=== PATIENT | male | born 1955 | race Caucasian/White ===

== ENCOUNTER 2024-11-18 09:43 | Outpatient (CLI) | payer MEDICARE, SELFPAY ==
[2024-11-18 10:13] LABS: Add Urine Microscopic? YES; Appearance Urine Clear (Clear); Bilirubin Urine Negative (Negative); Blood Urine 2+ (Negative); Color Urine Yellow (Yellow); Glucose Urine UA Negative (Negative); Ketones Urine Negative (Negative); Leukocyte Esterase Ur Trace (Negative); Nitrate Urine Negative (Negative); Protein Urine 1+ (Negative); Specific Grav Ur 1.025 (1.010-1.020); Urobilinogen Urine 0.2 mg/dL (0.2-1.0)
[2024-11-18 10:15] LABS: Basophils Absolute Auto 0.16 K/mm3 (0.00-0.10); Basophils Percent Auto 1.6 % (0.0-1.0); Eosinophils Absolute Auto 0.17 K/mm3 (0.02-0.50); Eosinophils Percent Auto 1.7 % (1.0-6.0); Hemoglobin 15.1 g/dL (12.4-15.3); Immature Granulocyte Absolute 0.04 K/mm3 (0.00-0.00); Immature Granulocyte Percent A 0.4 % (0.0-0.0); Lymphocytes Absolute Auto 2.48 K/mm3 (1.10-4.50); Lymphocytes Percent Auto 24.6 % (18.0-42.0); Mean Corpuscular HGB Conc 33.6 g/dL (32-36); Mean Corpuscular Hemoglobin 32.3 pg (27.0-31.0); Mean Corpuscular Volume 96.2 fL (78.0-102.0); Mean Platelet Volume 8.9 fl (8.7-11.0); Monocytes Absolute Auto 0.69 K/mm3 (0.10-0.90); Monocytes Percent Auto 6.8 % (2.0-11.0); Neutrophils Absolute Auto 6.54 K/mm3 (1.70-7.20); Neutrophils Percent Auto 64.9 % (50.0-70.0); Platelet Count Result 336 K/mm3 (150-420); Red Blood Count 4.68 M/mm3 (4.70-6.10); Red Cell Distribution Width 12.3 % (11.6-14.4); White Blood Count 10.1 K/mm3 (4.8-10.8)
[2024-11-18 10:30] LABS: Bacteria Urine Trace /hpf; Mucus Urine Few /lpf
[2024-11-18 10:56] LABS: Alanine Aminotransferase 25 U/L (16-63); Albumin Level 3.6 g/dL (3.4-5.0); Alkaline Phosphatase 112 U/L (46-116); Anion Gap 8 mmol/L (4-12); Aspartate Amino Transferase 19 U/L (15-37); Bilirubin,Total 0.2 mg/dL (0.00-1.00); Blood Urea Nitrogen 13 mg/dL (7-18); CRP 0.5 mg/dL (0.0-0.9); Calcium 9.1 mg/dL (8.5-10.1); Carbon Dioxide 30 mmol/L (21-32); Chloride 101 mmol/L (98-108); Estimated Glomerular Filt Rate 59; Glucose 109 mg/dL (70-99); Osmolality Calculated 289 mOsm/kg (285-295); Potassium 4.5 mmol/L (3.5-5.1); Sodium 139 mmol/L (136-145); Thyroid Stimulating Hormone 1.25 uIU/mL (0.36-3.74); Total Protein 6.9 g/dL (6.4-8.2); Uric Acid 5.3 mg/dL (3.5-7.2)
[2024-11-18 11:19] LABS: Erythrocyte Sedimentation Rate 16 mm/hr (0-20)
[2024-11-18 15:03] LABS: Prostate Specific Antigen 4.9 ng/mL (< OR = 4.0)
== END 2024-11-18 09:44 | disposition home or self-care (01) ==
PROVIDERS: PCP Internal Medicine; Visit Provider Internal Medicine
DX: Z12.5 Encounter for screening for malignant neoplasm of prostate (principal); N20.0 Calculus of kidney; R30.0 Dysuria; N50.819 Testicular pain, unspecified; R53.83 Other fatigue
CPT/HCPCS: 36415; 80053; 81001; 84153; 84443; 84550; 85025; 85652; 86140; 87086; G0103

== ENCOUNTER 2024-11-22 10:01 | Outpatient (CLI) | payer MEDICARE, SELFPAY ==
--- NOTE | ~2024-11-22 | US_ITS ---
Testicular ultrasound with doppler. Indication: Testicular pain, hematuria. Technique: Real-time sonography the scrotum was performed. Color flow Doppler and Doppler spectral an alysis were performed. Findings: The testes are homogeneous in echotexture bilaterally. There is no evidence of solid intra testicular mass. There is a 4 mm left testicular cyst. The right testis measures 5.3 x 3.4 x 2.5 cm a nd the left 3.8 x 2.4 x 2.6 cm. There is color-flow seen to both testes. Arterial and venous spectral waveforms are seen in both testes. There is no sonographic evidence of torsion. There is a 10 mm lef t epididymal head cyst or spermatocele. Right epididymis unremarkable. Minimal bilateral hydroceles a re present. Impression: No acute abnormality seen. Minimal bilateral hydroceles. 10 mm left epididymal head cyst or spermatocele. 4 mm left testicular cyst. Reviewed, dictated and finalized at [facility]. ETING AND PUBLIC RELATIONS MANAGER Impression: No acute abnormality seen. Minimal bilateral hydroceles. 10 mm left epididymal head cyst or spermatocele. 4 mm left testicular cyst.
--- NOTE | ~2024-11-22 | CT_ITS ---
CT of the Abdomen and Pelvis: Indication: Hematuria Technique: 2.5 mm axial scans were obtained through the abdomen and pelvis prior to and following in travenous administration of 130 cc of Omnipaque 350. Dose reduction technique was used on this scan b y utilizing automated exposure control and iterative reconstruction technique. The dose-length produc t (DLP) was 778.15 mGy-cm. Findings: Scans through the lung bases are unremarkable. The liver, spleen, pancreas, gallbladder, and adrenal glands are within normal limits. There are athe rosclerotic calcifications of the aorta. No lymphadenopathy. No left renal stone or left ureteral stone. No left hydronephrosis. There is a 1.8 x 0.7 cm ovoid sto ne at the right renal pelvis. Additional 3 mm nonobstructing right renal stone probably present. No h ydronephrosis. Remainder of the right ureter unremarkable. No bowel obstruction or bowel wall thickening. There is no evidence to suggest acute appendicitis. Images through the pelvis were performed. There is irregular possible filling defect in the left post erior bladder on delayed images, possibly related to ureteral jet, though an irregular mass or blood clot excluded.. No pelvic mass seen. No ascites. Impression: Right nephrolithiasis, as above, including 1.8 x 0.7 cm right renal pelvis stone. No lloyd hydronephr osis on either side. Irregular possible filling defect in the posterior left urinary bladder on delayed images. This is li mohan artifactual related to ureteral jet, but a mass lesion or blood clot is not completely excluded. Reviewed, dictated and finalized at [facility]. FORGER HELPER Impression: Right nephrolithiasis, as above, including 1.8 x 0.7 cm right renal pelvis ston e. No lloyd hydronephrosis on either side. Irregular possible filling defect in the posterior left urinary bladder on noemí yed images. This is likely artifactual related to ureteral jet, but a mass lesi on or blood clot is not completely excluded.
== END 2024-11-22 10:02 | disposition home or self-care (01) ==
LOC: CHSIMG 10:04
PROVIDERS: PCP Internal Medicine; Visit Provider Internal Medicine
DX: N20.0 Calculus of kidney (principal); R30.0 Dysuria; N50.819 Testicular pain, unspecified; N43.3 Hydrocele, unspecified; N44.2 Benign cyst of testis
CPT/HCPCS: 74178; 76870; 93976; Q9967

== ENCOUNTER 2025-01-28 11:11 | Outpatient (CLI) | payer MEDICARE, SELFPAY ==
--- NOTE | 2025-01-28 11:40 | ECG_ITS ---
Test Date: 2025-01-28 11:48:18 Measurements Intervals [place] Rate: 96 P: 71 RI: 140 QRS: -74 QRSD: 83 T: 84 QT: 341 QTc: 432 Interpretive Statements SINUS RHYTHM WITH FREQUENT SUPRAVENTRICULAR PREMATURE COMPLEXES POSSIBLE RIGHT VENTRICULAR CONDUCTION DELAY LEFT ANTERIOR FASCICULAR BLOCK ANTEROSEPTAL INFARCT, AGE INDETERMINATE BASELINE ARTIFACT- I, II, III, AVR, AVL ,AVF, V1-V2 ABNORMAL ECG No previous ECG available for comparison Electronically Signed On 01-28-2025 13:39:09 CDT by Ori Mitchell D.O.
[2025-01-28 12:24] LABS: INR 0.9; Prothrombin Time 12.9 Seconds (11.1-14.7)
[2025-01-28 12:25] LABS: Partial Thromboplastin Time 27.8 Seconds (22.3-36.8)
== END 2025-01-28 11:12 | disposition home or self-care (01) ==
LOC: ANHSURGERY 11:15
PROVIDERS: PCP Internal Medicine; Visit Provider Urology
DX: Z01.818 Encounter for other preprocedural examination (principal); N20.0 Calculus of kidney; R94.31 Abnormal electrocardiogram [ECG] [EKG]; I49.3 Ventricular premature depolarization; I44.4 Left anterior fascicular block; Z87.891 Personal history of nicotine dependence
CPT/HCPCS: 36415; 85610; 85730; 93005

== ENCOUNTER 2025-02-04 00:37 | Day surgery (SDC) | payer MEDICARE, SELFPAY ==
[2025-01-27 12:23] VITALS: BMI 21.7
--- NOTE | 2025-01-27 12:32 | PC.NURSE ---
Report to the Outpatient Waiting Room, entrance under the green pavilion located off [facility], at time 06:00am on date __02/04/25 . Planned Procedure Time: _730am .? Time changes happen often and if your time is changed the preop area will call you the afternoon before. - You and your visitor will be asked to self-screen and do not enter if you have any COVID symptoms. Please call surgeon if you need to reschedule. - A mask is optional within the hospital at this time. Patients may have clear liquids (water, carbonated beverages, clear teas, apple juice) until 3 hours prior to surgery with a maximum of 20 ounces. - No food from midnight until time of surgery and no smoking, or chewing tobacco (or any form of nicotine). No chewing gum, candy or mints. (0430am) Take only the following medications with a SIP of water on the morning of surgery: ___Lyrica DO NOT STOP ANY OF YOUR OTHER PRESCRIPTION MEDICATIONS PRIOR TO SURGERY EXCEPT THE FOLLOWING Hold all vitamins and supplements for 3 days per anesthesiologist. Date to take last dose Medications to discontinue per physician Celebrex for [address] Pearson Date to take last dose____01/26/25 Please no make-up, nail nepali, hairspray, perfume, deodorant, or body powder the day of surgery.? No jewelry (including any body piercings) or valuables the day of surgery, leave them at home.? Please take a shower or bath the night before, or the morning of, surgery with an antibacterial soap.? Wear comfortable, loose fitting clothing.? - Jewelry must be removed prior to entering the operating room.? Rings and piercings that are not removed may be cut off. - The hospital will not accept responsibility for valuables.? - Please leave all valuables, including medications, at home the day of surgery. If you are going home after surgery, a licensed street flusher driver must drive you home.? - NO public transportation without another adult if you receive anesthesia. - We recommend that an adult stay with you for 24 hours following discharge. - We also recommend that you do not drive, make important decision, drink alcoholic beverages, or take any drugs that were not prescribed by your health care provider for at least 24 hours after your discharge time. Follow any additional instructions given to you from your surgeon. Telephone instructions given to _Patient and asked if any additional questions and then verbalized understanding. Patient advised to call surgeon office or pre surgery nurse liaison [phone] if any additional questions.
--- NOTE | 2025-01-28 13:21 | SUR.PREOP ---
1220 - Called cardiology and requested stat read on EKG. 1310 - Called Dr. Mitchell's office - office closed. 1320 - Spoke with patient about EKG preliminary report. Pt states I don't believe that thing . Pt states he is not having any chest pain, shortness of breath, or any other cardiac symptoms. Encouraged pt to be evaluated in the ER - patient refuses. Encouraged patient to go to the ER/call 911 if he experiences and chest pain/heart attack symptoms. Patient verbalizes understanding.
--- NOTE | ~2025-02-04 | XR_ITS ---
Supine and upright views of the abdomen Clinical history: Renal stone, lithotripsy COMPARISON: CT dated 11/22/2024 Findings: Bowel gas pattern is nonspecific. No evidence for obstruction or free air. 16 mm ovoid ston e in present at the region of the right renal pelvis. Possible small subcentimeter additional right r enal stones. Osseous structures are intact. Impression: 16 mm ovoid stone at the region of the right renal pelvis. Possible additional subcentimeter right re nal stones. Reviewed, dictated and finalized at location M. Impression: 16 mm ovoid stone at the region of the right renal pelvis. Possible additional subcentimeter right renal stones.
[2025-02-04 06:06] VITALS: BP 145/76; PULSE 90; RESP 16; TEMP 36.8; O2SAT 97
--- NOTE | 2025-02-04 06:23 | WPDHPUPDATE1 ---
History and Physical Update Update Date/Time: 02/04/25 06:23 History and Physical has been reviewed, including an updated exam of the patient. There are NO changes in the patient's condition. Risks, benefits, and alternatives have been discussed and questions answered. Patient agrees to proceed with procedure.
[2025-02-04] MEDS: LACTATED RINGERS 1,000 ML 30 ML IV CONT ×2 (06:30→08:18)
--- NOTE | 2025-02-04 07:17 | P.PNAN_ITS ---
Anes - Initial Pre Proc Eval Procedure: Operation Date: 02/04/25 07:30 Proposed Procedures p Right Extracorporeal Shock Wave Lithotripsy - Davy Pearson MD s Cystoscopy, Right Ureteral Stent Placement - Davy Pearson MD Date/Time: 02/04/25 07:17 Surgeon: Davy Pearson MD Pre Op Diagnosis: Rt Kidney Stone Patient Data Age: 69 Gender: M Height: 1.73 m Weight: 65 kg Last Vital Signs Temp 36.8 C 02/04/25 06:06 Pulse 90 02/04/25 06:06 Resp 16 02/04/25 06:06 BP 145/76 H 02/04/25 06:06 Pulse Ox 97 02/04/25 06:06 Allergies Allergy/AdvReac Type Severity Reaction Status Date / Time NKDA Allergy Unknown none Uncoded 01/27/25 12:21 NKFA Allergy Unknown none Uncoded 01/27/25 12:21 NO KNOWN DRUG ALLERGIES Allergy Y Uncoded 02/04/25 06:37 (Class Allergy) Home Medications ?Medication ?Instructions ?Recorded ?Confirmed ?Type celecoxib 200 mg capsule (Celebrex) 200 mg PO DAILY 01/27/25 02/04/25 History pregabalin 75 mg capsule (Lyrica) 75 mg PO BID 01/27/25 02/04/25 History Patient hx anesthesia problems: post op nausea/vomiting Family hx anesthesia problems: none Results Review: All pre-operative results and documents have been reviewed as part of the pre- operative evaluation. [facility] Social History Social History Smoking packs per day: 1 Smoking cigarettes per day: 20.0 Years smoked: 50 Smoking pack-years: 50.00 Smoking status: Current every day smoker Tobacco type: cigarettes Alcohol intake: never Substance use: never Living arrangements: alone Spiritual care concerns: No Anes - Eval Final PreProcedure Day of Procedure 02/04/25 07:17 Patient weight: normal Heart: regular rate and rhythm Lungs: decreased breath sounds Airway: Mallampati scale class III Neurological: alert and oriented Last oral intake: >/= 8 hours ASA classification: III Emergent: no Anesthetic plan: proceed Anesthesia type and monitoring: general LMA and standard monitoring Results Review: All pre-operative results and documents have been reviewed as part of the pre- operative evaluation. Informed Consent: The patient's anesthetic plan and its attendant risks and benefits were discussed with the patient/family/POA. Questions were solicited and answers provided to the satisfaction of the patient/family/POA.
[2025-02-04] MEDS: ceFAZolin 2 GM/D5W 50 ML 2 GM/50 ML BAG IVPB (07:23)
--- NOTE | 2025-02-04 08:16 | W.PM.PROC2 ---
Procedure Note - Detailed Date of Procedure 02/04/25 Pre-op Diagnosis Rt Kidney Stone Post-op Diagnosis Other (1. Right kidney stone 2. Bladder tumor) Procedure Performed 1. Cystoscopy, right ureteral stent placement 2. Right ESWL 3. TURBT (small, 2 cm) Surgeon Davy Pearson MD Anesthesia General Description of Procedure Patient is brought the operative suite was prepped and draped in routine sterile fashion while in a supine position. Flexible cystoscopy was undertaken with a 16 F flexible cystoscope. He has no urethral stricture and moderate lateral lobe hyperplasia with a 2.5 cm estimated prostatic urethral length. There was no significant median lobe. 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 The remainder of the bladder was without mucosal abnormalities or additional neoplasms. He has a single orthotopic ureteral orifice bilaterally. 0.035 in glidewire was advanced in right renal pelvis under fluoroscopy and a 4.8 F variable length stent is appropriate position with the proximal coil in the renal pelvis and distal coil in the bladder. He has 15 mm stone was in the right renal pelvis was treated with 2500 shocks at a power setting of 4. There appeared to be good fragmentation of the stone. During the course of lithotripsy I placed a 24 F resectoscope in the patient's bladder and resected the bladder tumor to its base with an attempt to include detrusor muscle for pathological evaluation of invasion. This was done with care taken to avoid injury to the left ureteral orifice. The bladder was emptied and the resectoscope was removed. The patient tolerated these procedures well Drains Yes Pathology Yes Complications No immediate complications Disposition PACU
[2025-02-04 08:18] VITALS: BP 157/69; PULSE 85; RESP 14; TEMP 36.4; O2SAT 100
[2025-02-04 08:30] VITALS: BP 149/78; PULSE 73; RESP 16; O2SAT 100
--- NOTE | 2025-02-04 08:39 | SUR.PHASEI ---
0838: Simple mask removed.
[2025-02-04 08:45] VITALS: BP 146/73; PULSE 76; RESP 14; O2SAT 99
[2025-02-04 09:05] VITALS: BP 167/81; PULSE 82
[2025-02-04 09:35] VITALS: BP 159/72; PULSE 80
== END 2025-02-04 09:45 | disposition home or self-care (01) ==
PROVIDERS: PCP Internal Medicine; Visit Provider Urology
PROC: (CPT 50590; principal; 2025-02-04 07:30)
PROC: (CPT 52352; 2025-02-04 07:30)
DX: N20.0 Calculus of kidney (principal); C67.5 Malignant neoplasm of bladder neck; N40.0 Benign prostatic hyperplasia without lower urinary tract symptoms; F17.210 Nicotine dependence, cigarettes, uncomplicated; Z79.1 Long term (current) use of non-steroidal anti-inflammatories (NSAID)
CPT/HCPCS: 50590; 52234; 74018; 88305; C1758; C1769; C2617; J0690; J2003; J2250; J2405; J2704; J3010; J7120

== ENCOUNTER 2025-02-15 13:53 | Outpatient (CLI) | payer MEDICARE, SELFPAY ==
--- NOTE | ~2025-02-15 | XR_ITS ---
XR abdomen/kub 1V Ordering provider: Davy Pearson MD History: . Kidney stone on rt side, stent placed 2 weeks ago . Comparison: None. FINDINGS: BOWEL: Nonobstructive bowel gas pattern. ORGANOMEGALY: None. SIGNIFICANT PATHOLOGIC CALCIFICATIONS: Right double-J stent with a stone seen in the upper ureter. Bi lateral kidney stones. OTHER: No free air is seen under the diaphragm. Degenerative changes of the spine. Severe bilateral hip osteoarthritic changes. IMPRESSION: NO ACUTE ABDOMINAL FINDINGS. Bilateral kidney stones. Right upper ureteric stone with right double-J stent. Reviewed, dictated and finalized at location A.
== END 2025-02-15 13:54 | disposition home or self-care (01) ==
LOC: ANHIMG 13:57
PROVIDERS: PCP Internal Medicine; Visit Provider Urology
DX: N20.0 Calculus of kidney (principal); N20.1 Calculus of ureter; Z96.0 Presence of urogenital implants
CPT/HCPCS: 74018

== ENCOUNTER 2025-02-24 10:40 | Outpatient (CLI) | payer MEDICARE, SELFPAY ==
--- NOTE | ~2025-02-24 | XR_ITS ---
Supine and upright views of the abdomen Clinical history: Kidney stones COMPARISON: 02/15/2025 Findings: Bowel gas pattern is nonspecific. No evidence for obstruction or free air. Right ureteral s tent again present. 1 cm stone present adjacent to the stent of the proximal ureter, an additional pr obable 9 mm stone present at the proximal to mid right ureter adjacent to the stent. Calcified spleni c granulomas are present. Probable small left renal stones present. Osseous structures are intact. Impression: 1 cm and 9 mm stones at the proximal to mid right ureter along the course of the right ureteral stent . Small left renal stones. Reviewed, dictated and finalized at location M. Impression: 1 cm and 9 mm stones at the proximal to mid right ureter along the course of th e right ureteral stent. Small left renal stones.
== END 2025-02-24 10:41 | disposition home or self-care (01) ==
PROVIDERS: PCP Internal Medicine; Visit Provider Urology
DX: N20.2 Calculus of kidney with calculus of ureter (principal); Z96.0 Presence of urogenital implants
CPT/HCPCS: 74018

== ENCOUNTER 2025-03-17 01:00 | Day surgery (SDC) | payer MEDICARE, SELFPAY ==
--- NOTE | 2025-03-07 14:59 | PC.NURSE ---
Addendum entered by La Cavazos RN 03/09/25 13:13: ARRIVE AT 11 AM ON 03/17/25 SURGERY TIME 1:00PM Original Note: Report to the Outpatient Waiting Room, entrance under the green pavilion located off [facility], at time _1330 on date __03/10/25 . Planned Procedure Time: _1530 .? Time changes happen often and if your time is changed the preop area will call you the afternoon before. - You and your visitor will be asked to self-screen and do not enter if you have any COVID symptoms. Please call surgeon if you need to reschedule. - A mask is optional within the hospital at this time. Patients may have clear liquids (water, carbonated beverages, clear teas, apple juice) until 3 hours prior to surgery ( 1230 PM) with a maximum of 20 ounces. - No food from midnight until time of surgery and no smoking, or chewing tobacco (or any form of nicotine). No chewing gum, candy or mints. - Infants may have breast milk until 4 hours before surgery, infant formula 6 hours prior to surgery. - Children will be allowed to drink immediately following surgery.? If applicable, please bring a bottle or sippy cup to assist with drinking. Juice, water, soda, and popsicles are readily available.? For infants on formula, please bring formula the day of surgery.? Pacifiers are allowed. Take only the following medications with a SIP of water on the morning of surgery: ___LYRICA DO NOT STOP ANY OF YOUR OTHER PRESCRIPTION MEDICATIONS PRIOR TO SURGERY EXCEPT THE FOLLOWING Hold all vitamins and supplements for 3 days per anesthesiologist. Medications to discontinue per physician NONE Date to take last dose Please no make-up, nail nepali, hairspray, perfume, deodorant, or body powder the day of surgery.? No jewelry (including any body piercings) or valuables the day of surgery, leave them at home.? Please take a shower or bath the night before, or the morning of, surgery with an antibacterial soap.? Wear comfortable, loose fitting clothing.? Children are encouraged to wear pajamas. - Jewelry must be removed prior to entering the operating room.? Rings and piercings that are not removed may be cut off. - The hospital will not accept responsibility for valuables.? - Please leave all valuables, including medications, at home the day of surgery. If you are going home after surgery, a licensed bulk truck driver must drive you home.? - NO public transportation without another adult if you receive anesthesia. - We recommend that an adult stay with you for 24 hours following discharge. - We also recommend that you do not drive, make important decision, drink alcoholic beverages, or take any drugs that were not prescribed by your health care provider for at least 24 hours after your discharge time. For Pediatric surgeries, we recommend two adults accompany the child home. Follow any additional instructions given to you from your surgeon. Telephone instructions given to __PATIENT and asked if any additional questions and then verbalized understanding. Patient advised to call surgeon office or pre surgery nurse liaison [phone] if any additional questions.
--- NOTE | 2025-03-07 15:03 | PC.NURSE ---
STATES NO CHANGE IN HEALTH HX SINCE LAST INTERVIEW 01/28/25
[2025-03-07 15:04] VITALS: BMI 21.7
--- NOTE | ~2025-03-17 | XR_ITS ---
INTRAOPERATIVE FLUOROSCOPY: CLINICAL HISTORY: 69 years old Male; STONE EXTRACTION W/RIGHT STENT EXCHANGE PROCEDURE COMMENTS: Limited intraoperative fluoroscopy of the pelvis and right flank was performed. CUMULATIVE DOSE: 13.5 mGy FLUOROSCOPY TIME: 56 seconds FINDINGS/IMPRESSION: Please refer to operative note for further details. Reviewed, dictated and finalized at location A.
--- NOTE | 2025-03-17 05:56 | WPDHPUPDATE1 ---
History and Physical Update Update Date/Time: 03/17/25 05:56 History and Physical has been reviewed, including an updated exam of the patient. There are NO changes in the patient's condition. Risks, benefits, and alternatives have been discussed and questions answered. Patient agrees to proceed with procedure.
[2025-03-17 10:40] VITALS: BP 116/58; PULSE 98; RESP 20; TEMP 36.4; O2SAT 97
[2025-03-17] MEDS: LACTATED RINGERS 1,000 ML 30 ML IV CONT (10:50)
--- NOTE | 2025-03-17 11:32 | WPDANESEPPF ---
Anes - Initial Pre Proc Eval Procedure: Operation Date: 03/17/25 12:30 Proposed Procedures p Cystoscopy, Right Ureteroscopy, Possible Right Retrograde Pyelogram, Possible Right Stone Extraction, Right Stent Removal and Replacement, Possible Laser Lithotripsy - Davy Pearson MD Date/Time: 03/17/25 11:32 Surgeon: Davy Pearson MD Pre Op Diagnosis: right ureteral stones Patient Data Age: 69 Gender: M Height: 1.73 m Weight: 65 kg Allergies Allergy/AdvReac Type Severity Reaction Status Date / Time No Known Allergies Allergy Verified 03/17/25 10:39 Home Medications ?Medication ?Instructions ?Recorded ?Confirmed ?Type celecoxib 200 mg capsule (Celebrex) 200 mg PO DAILY 01/27/25 02/04/25 History pregabalin 75 mg capsule (Lyrica) 75 mg PO BID 01/27/25 03/07/25 History hydrocodone 5 mg-acetaminophen 325 1 - 2 tablet PO Q6H PRN pain #20 02/04/25 03/07/25 Rx mg tablet tabs Patient hx anesthesia problems: none Family hx anesthesia problems: none Results Review: All pre-operative results and documents have been reviewed as part of the pre-operative evaluation. [facility] Social History Social History Smoking packs per day: 1 Smoking cigarettes per day: 20.0 Years smoked: 50 Smoking pack-years: 50.00 Smoking status: Current every day smoker Tobacco type: cigarettes Alcohol intake: never Substance use: never Living arrangements: alone Spiritual care concerns: No Anes - Eval Final PreProcedure Day of Procedure 03/17/25 11:32 Patient weight: obese Heart: regular rate and rhythm Lungs: clear to auscultation Airway: Mallampati scale class II Neurological: alert and oriented Last oral intake: >/= 8 hours ASA classification: III Emergent: no Anesthetic plan: proceed Anesthesia type and monitoring: general LMA and standard monitoring Results Review: All pre-operative results and documents have been reviewed as part of the pre-operative evaluation. Informed Consent: The patient's anesthetic plan and its attendant risks and benefits were discussed with the patient/family/POA. Questions were solicited and answers provided to the satisfaction of the patient/family/POA.
[2025-03-17] MEDS: ceFAZolin 2 GM/D5W 50 ML 2 GM/50 ML BAG IVPB (14:28)
[2025-03-17] MEDS: LIDOCAINE 2% GEL UROJET 10 ML PKG MUCOUS MEM (15:01)
[2025-03-17 15:38] VITALS: BP 133/69; PULSE 80; RESP 15; TEMP 36.9; O2SAT 100
--- NOTE | 2025-03-17 15:40 | W.PM.PROC2 ---
Procedure Note - Detailed Date of Procedure 03/17/25 Pre-op Diagnosis Right ureteral stones Post-op Diagnosis Same Procedure Performed 1) Activity: no driving or important decisions x24 hours. 2) Diet: resume your normal, pre-admission diet. 3) Follow-up: Tue. 03/22 days for stent removal / my office will contact. Surgeon Davy Pearson MD Anesthesia General Description of Procedure Patient is brought to the operative suite, prepped and draped in a routine sterile fashion while in a dorsal lithotomy position after the uneventful induction of a general LMA anesthetic. Cystoscopy was undertaken with a 21F rigid cystoscope, the tip of the indwelling stent was grasped and brought to the external urethral meatus. This entire procedure is undertaken on the right side. A 0.035 glidewire was advanced into the renal pelvis and the distal ureter is dilated with an 8F/10F ureteral dilator. A 0.035 safety wire was placed. An 12F/14F ureteral access sheath was placed in position with the tip 1-2 cm distal to the ureteropelvic junction. A single use disposable CVAC aspiration ureteral scope was used to inspect the proximal ureter and full collecting system to identify all stones requiring lithotripsy and/or steerable vacuum extraction. A 200 micron Viewglass labor fiber was inserted into the laser bridge in the fiber/bridge was inserted into the CVAC system. Stone was broken into fragments approximately 1.5 mm in largest dimension or smaller using the laser. The laser fiber was used as a fiducial for visual assessment of fragments size to confirm completion of lithotripsy of the renal stones. From time to time, the laser fiber and laser bridge were withdrawn and intermittent vacuum aspiration was used to extract stone fragments and dust through the CVAC aspiration system and then the fiber/bridge was reinserted. The full collecting system was surveyed with a single use CVAC ureteral scope. Exhaustive steerable vacuum aspiration was performed using continuous fluid irrigation, increased fluid flow to mobilize stones and intermittent vacuum aspiration. Fluid outflow was monitor to confirm effluent contained stone fragments. Upon completion a vacuum aspiration of the primary stone fragment locations, the full collecting system was navigated and irrigated to collect fragments moving through the collecting system. This is was performed until no fragments were visible. there was no significant injury or bleeding throughout this procedure. The ureteral access sheath was removed and a 4.8 Portuguese variable length ureteral stent was replaced with the proximal coil in the renal pelvis and distal coil in the bladder. Patient tolerated the procedure well and was taken to the recovery in good condition. Drains No Pathology Yes Complications No immediate complications Condition Stable Disposition PACU
[2025-03-17 15:55] VITALS: BP 109/64; PULSE 68; RESP 16; O2SAT 98
[2025-03-17 16:10] VITALS: BP 152/65; PULSE 66; RESP 18; O2SAT 97
[2025-03-17 16:14] VITALS: BP 124/90; PULSE 78; RESP 16
[2025-03-17 16:45] VITALS: BP 115/73; PULSE 67; RESP 16
== END 2025-03-17 17:00 | disposition home or self-care (01) ==
PROVIDERS: PCP Internal Medicine; Visit Provider Urology
PROC: (CPT 52352; principal; 2025-03-17 12:30)
DX: N20.1 Calculus of ureter (principal); F17.210 Nicotine dependence, cigarettes, uncomplicated
CPT/HCPCS: C9761; 82365; 88300; C1747; C1769; C1894; C2617; J0690; J1100; J2405; J2704; J3010; J7120; Q9966

== ENCOUNTER 2025-04-27 11:51 | Outpatient (CLI) | payer MEDICARE, SELFPAY ==
--- NOTE | ~2025-04-27 | XR_ITS ---
Supine and upright views of the abdomen Clinical history: Right kidney stone COMPARISON: 02/24/2025 Findings: Bowel gas pattern is nonspecific. No evidence for obstruction or free air. Right ureteral s tent has been removed since prior exam. Multiple right renal stones are present. Previously noted ure teral stones are no longer seen. Osseous structures are intact. Impression: Multiple right-sided renal stones. Right ureteral stones seen on prior exam are no longer visualized. Interval removal of right ureteral stent. Reviewed, dictated and finalized at location . Impression: Multiple right-sided renal stones. Right ureteral stones seen on prior exam are no longer visualized. Interval rem oval of right ureteral stent.
== END 2025-04-27 11:52 | disposition home or self-care (01) ==
PROVIDERS: PCP Internal Medicine; Visit Provider Urology
DX: N20.0 Calculus of kidney (principal)
CPT/HCPCS: 74018

== ENCOUNTER 2025-08-23 10:19 | Outpatient (CLI) | payer MEDICARE, SELFPAY ==
[2025-08-23 10:33] LABS: Hematocrit 45.1 % (37.0-46.0); Hemoglobin 15.1 g/dL (12.4-15.3); Mean Corpuscular HGB Conc 33.5 g/dL (32-36); Mean Corpuscular Hemoglobin 31.9 pg (27.0-31.0); Mean Corpuscular Volume 95.3 fL (78.0-102.0); Platelet Count Result 292 K/mm3 (150-420); Red Blood Count 4.73 M/mm3 (4.70-6.10); White Blood Count 10.8 K/mm3 (4.8-10.8)
[2025-08-23 11:17] LABS: Alanine Aminotransferase 19 U/L (6-50); Albumin Level 4.6 g/dL (3.5-5.1); Alkaline Phosphatase 84 U/L (38-126); Anion Gap 9 mmol/L (4-12); Aspartate Amino Transferase 32 U/L (17-59); Bilirubin,Total 0.6 mg/dL (0.2-1.3); Blood Urea Nitrogen 19 mg/dL (9-20); Calcium 9.9 mg/dL (8.4-10.2); Carbon Dioxide 28 mmol/L (22-30); Chloride 103 mmol/L (98-107); Estimated Glomerular Filt Rate 56; Glucose 104 mg/dL (65-110); Osmolality Calculated 292 mOsm/kg (285-295); Potassium 5.5 mmol/L (3.4-5.0); Sodium 140 mmol/L (137-145); Total Protein 9.0 g/dL (6.3-8.2)
[2025-08-23 11:47] LABS: Prostate Specific Antigen 5.5 ng/mL (< OR = 4.0)
--- OUTSIDE RECORDS SUMMARY | 2025-08-23 11:50 | XMS_ITS ---
Author Organization Unknown ENCOUNTERS Encounter Performer Location Date Diagnosis Diagnosis Status Outpatient [facility] [address] [place] [address] [id number] Outpatient [facility] [address] [place] [address] [id number] GUNJAN [facility] [address] [place] [address] [id number] GUNJAN [facility] [address] [place] [address] [id number] GUNJAN Out[facility] [address] [place] [address] [id number] GUNJAN Outpatient [facility] [address] [place] [address] [id number] GUNJAN Outpatient [facility] [address] [place] [address] [id number] GUNJAN Outpatient [facility] [address] [place] [address] [id number] GUNJAN Outpatient [facility] [address] [place] [address] [phone] GUNJAN *Note: Encounters from your own facility or health system may be excluded. Allergies, Adverse Reactions, Alerts Allergen Type Severity Identification Date Medications Name Date Quantity Days Supplied [facility] Number
[2025-08-23 16:56] LABS: Potassium 5.5 mmol/L (3.4-5.0)
== END 2025-08-23 10:20 | disposition home or self-care (01) ==
LOC: CHSLAB 10:22
PROVIDERS: PCP Internal Medicine; Visit Provider Internal Medicine
DX: G89.29 Other chronic pain (principal); Z79.899 Other long term (current) drug therapy; R97.20 Elevated prostate specific antigen [PSA]
CPT/HCPCS: 36415; 80053; 84132; 84153; 85027

== ENCOUNTER 2025-09-01 10:31 | Outpatient (CLI) | payer MEDICARE, SELFPAY ==
[2025-09-01 11:39] LABS: Alanine Aminotransferase 19 U/L (6-50); Albumin Level 4.4 g/dL (3.5-5.1); Alkaline Phosphatase 86 U/L (38-126); Anion Gap 8 mmol/L (4-12); Aspartate Amino Transferase 28 U/L (17-59); Bilirubin,Total 1.2 mg/dL (0.2-1.3); Blood Urea Nitrogen 24 mg/dL (9-20); Calcium 9.1 mg/dL (8.4-10.2); Carbon Dioxide 28 mmol/L (22-30); Chloride 105 mmol/L (98-107); Estimated Glomerular Filt Rate 57; Glucose 120 mg/dL (65-110); Osmolality Calculated 297 mOsm/kg (285-295); Potassium 4.6 mmol/L (3.4-5.0); Sodium 141 mmol/L (137-145); Total Protein 7.2 g/dL (6.3-8.2)
== END 2025-09-01 10:32 | disposition home or self-care (01) ==
PROVIDERS: PCP Internal Medicine; Visit Provider Internal Medicine
DX: E87.5 Hyperkalemia (principal)
CPT/HCPCS: 36415; 80053